=== PATIENT | male | born 1980 | race Caucasian/White ===

== ENCOUNTER 2017-04-26 13:07 | Emergency (ER) | payer OTHER ==
[2017-04-26 13:49] VITALS: BP 121/80; PULSE 79; RESP 18; TEMP 99
--- NOTE | 2017-04-26 14:30 | ED ---
General Adult HPI - General Chief complaint: Wound/Laceration Stated complaint: R hand laceration Time Seen by Provider: 04/26/17 13:59 Source: patient, RN notes reviewed Mode of arrival: ambulatory Limitations: no limitations - History of Present Illness Initial comments: Patient 37-year-old male who presents emergency room today with chief complaint of laceration to the posterior aspect of the right hand. Patient does admit that his right hand. He was using a cutting wheel cutting a pipe when it slipped causing this laceration. States tetanus is up-to-date. Denies any other complaints or associated symptoms. Patient denies any recent fever, chills , shortness of breath, chest pain, back pain, abdominal pain, nausea or vomiting , numbness or tingling, dysuria or hematuria, constipation or diarrhea, headaches or visual changes, or any other complaints. - Related Data Previous Rx's Medication Instructions Recorded Cephalexin [Keflex] 500 mg PO Q12HR 10 Days 04/26/17 Allergies Allergy/AdvReac Type Severity Reaction Status Date / Time morphine Allergy Rash/Hives Verified 04/26/17 13:49 Penicillins Allergy Unknown Verified 04/26/17 13:49 Childhood Review of Systems ROS Statement: Those systems with pertinent positive or pertinent negative responses have been documented in the HPI. ROS Other: All systems not noted in ROS Statement are negative. Past Medical History Past Medical History: No Reported History History of Any Multi-Drug Resistant Organisms: None Reported Past Surgical History: Orthopedic Surgery Additional Past Surgical History / Comment(s): knee Past Psychological History: Bipolar Smoking Status: Never smoker Past Alcohol Use History: Occasional Past Drug Use History: Marijuana General Exam - General Exam Comments Initial Comments: General: The patient is awake and alert, in no distress, and does not appear acutely ill. Neck: The neck is supple, there is no tenderness or JVD. Cardiovascular: There is a regular rate and rhythm. No murmur, rub or gallop is appreciated. Respiratory: Lungs are clear to auscultation, respirations are non-labored, breath sounds are equal. No wheezes, stridor, rales, or rhonchi. Musculoskeletal: Laceration to the posterior aspect of the right hand. Shows full range of motion. Strength 5/5. Sensation is intact pulses bilateral 2+. Neurological: A&O x 3. CN II-XII intact, There are no obvious motor or sensory deficits. Coordination appears grossly intact. Speech is normal. Skin: Skin is warm and dry and no rashes or lesions are noted. Psychiatric: Normal mood and affect. Limitations: no limitations Course Vital Signs 04/26/17 13:46 Temperature 99.0 F Pulse Rate 79 Respiratory 18 Rate Blood Pressure 121/80 O2 Sat by Pulse 97 Oximetry Procedures - Procedures Initial comment: 1.5 cm linear laceration arrival to the posterior aspect of the right hand. The skin was anesthetized with 1% lidocaine. The laceration was then cleansed with and irrigated with normal saline. The wound was inspected, evidence for a extensor tendon laceration. No foreign body was noted in the wound. A total of 3 skin sutures were placed utilizing 4-0 nylon. Medical Decision Making - Medical Decision Making Case discussed with Sara Lerma orthopedic physician marketing assistant manager who recommends finger splint) the wound and started on antibiotics to follow-up in the office over the next 2 days. Disposition Clinical Impression: Laceration, Extensor tendon laceration of finger with open wound Disposition: HOME SELF-CARE Condition: Good Instructions: Tendon Laceration (ED) Additional Instructions: Please follow-up with orthopedics over the next 1-2 days as discussed. Please use antibiotic as prescribed. Please return here to the emergency room symptoms increase worsen or for any other concerns. Prescriptions: Cephalexin [Keflex] 500 mg PO Q12HR 10 Days Referrals: None,Stated [Primary Care Provider] - 1-2 days Deshawn Lebron DO [Doctor of Osteopathic Medicine] - 1-2 days Time of Disposition: 15:34
--- NOTE | 2017-04-26 14:50 | XR ---
EXAMINATION TYPE: XR hand complete RT DATE OF EXAM: 04/26/2017 COMPARISON: NONE HISTORY: 37-year-old male with posterior laceration and pain TECHNIQUE: 3 views FINDINGS: No acute fracture, subluxation, or dislocation. No retained radiopaque foreign body seen. IMPRESSION: No acute osseous abnormality seen.
== END 2017-04-26 15:41 | disposition home or self-care (01) ==
LOC: EC 13:07
DX: S61.210A Laceration without foreign body of right index finger without damage to nail, initial encounter (principal); Z88.0 Allergy status to penicillin; Z88.5 Allergy status to narcotic agent; W26.8XXA Contact with other sharp object(s), not elsewhere classified, initial encounter; Y93.89 Activity, other specified
CPT/HCPCS: 12001; 99283